=== PATIENT | male | born 1965 | race Caucasian/White ===

== ENCOUNTER 2020-10-30 12:39 | Inpatient (IN) ==
[2020-10-30] MEDS ORDERED: ALBUTEROL 2.5 MG/3 ML NEB RESP TX PRN (15:08)
[2020-10-30] MEDS ORDERED: DEXTROSE 50% 25 GM/50 ML VIAL IV PRN (15:13)
[2020-10-30] MEDS ORDERED: ONDANSETRON 4 MG/2 ML VIAL IV PRN (15:13)
[2020-10-30] MEDS ORDERED: GLUCAGON 1 MG VIAL IM PRN (15:13)
[2020-10-30 15:52] LABS: Basophils % 0.1 % (0.0-0.8); Eosinophils % 0.1 % (0.00-10.9); Hematocrit 27.9 VOL% (42.0-52.0); Hemoglobin 9.4 GM/DL (14.0-18.0); Immature Granulocytes % 5.9 %; Immature Granulocytes Absolute 0.92 #; Lymphocytes # 0.6 10*3/uL (1.4-4.0); Lymphocytes % 4.1 % (21.2-54.2); Mean Corpuscular HGB Conc 33.7 GM/DL (32-36); Mean Corpuscular Volume 96.2 FL (87-102); Mean Platelet Volume 9.2 FL (9.6-12.0); Neutrophils % 80.8 % (38.7-73.9); Platelet Count 254 T/CUMM (130-400); Red Cell Distribution Width 12.1 % (9.3-17.3); White Blood Count 15.5 T/CUMM (4-12)
[2020-10-30] MEDS ORDERED: LEVOFLOXACIN INJ 750 MG in PREMIX 1 EACH IV SCH (16:00)
[2020-10-30 16:13] LABS: Albumin 2.1 G/DL (3.4-5.0); Bilirubin,Total 0.4 MG/DL (0.2-1.0); Calcium 8.4 MG/DL (8.5-10.1); Osmolality,Calculated 261.5 MOS/KG (273-304); Potassium 3.6 MMOL/L (3.5-5.1); Total Protein 6.8 G/DL (5.0-7.5)
[2020-10-30 16:42] LABS: Anisocytosis Slight; Band Neutrophils 6 % (0-10); Hypochromasia 1+; Lymphocytes 1 % (20-55); Platelet Estimate Adequate; Segmented Neutrophils 85 % (50-85); Total Cells Counted 100
[2020-10-30] MEDS: GABAPENTIN 300 MG CAPSULE PO SCH ×2 (16:52→21:25)
[2020-10-30] MEDS: ACETAMINOPHEN 325 MG TABLET PO PRN ×2 (16:52→21:26)
[2020-10-30] MEDS: ENOXAPARIN 40 MG/0.4 ML SYRINGE SUBCUT SCH (17:42)
[2020-10-30] MEDS: PIPERACILLIN/TAZOBACTAM 3,375 MG in SODIUM CHLORIDE 0.9% 100 ML IV SCH (19:07)
[2020-10-30] MEDS: guaiFENesin/DM ER 600-30 MG TABLET PO SCH (21:25)
[2020-10-31] MEDS: VANCOMYCIN INJ 1,000 MG in SODIUM CHLORIDE 0.9% 250 ML IV SCH ×2 (00:51→17:54)
[2020-10-31] MEDS: PIPERACILLIN/TAZOBACTAM 3,375 MG in SODIUM CHLORIDE 0.9% 100 ML IV SCH ×3 (04:38→20:45)
[2020-10-31 05:49] LABS: Basophils % 0.2 % (0.0-0.8); Eosinophils % 0.3 % (0.00-10.9); Hematocrit 29.4 VOL% (42.0-52.0); Hemoglobin 9.6 GM/DL (14.0-18.0); Immature Granulocytes Absolute 0.13 #; Lymphocytes # 0.6 10*3/uL (1.4-4.0); Lymphocytes % 4.8 % (21.2-54.2); Mean Corpuscular HGB Conc 32.7 GM/DL (32-36); Mean Platelet Volume 9.9 FL (9.6-12.0); Neutrophils % 84.7 % (38.7-73.9); Platelet Count 252 T/CUMM (130-400); Red Cell Distribution Width 12.1 % (9.3-17.3); White Blood Count 13.1 T/CUMM (4-12)
[2020-10-31] MEDS: ACETAMINOPHEN 325 MG TABLET PO PRN ×3 (05:59→16:47)
[2020-10-31 06:02] LABS: Albumin 2.1 G/DL (3.4-5.0); Bilirubin,Total 0.8 MG/DL (0.2-1.0); Calcium 8.8 MG/DL (8.5-10.1); Osmolality,Calculated 269.8 MOS/KG (273-304); Potassium 3.4 MMOL/L (3.5-5.1); Total Protein 6.6 G/DL (5.0-7.5)
[2020-10-31 06:23] LABS: Band Neutrophils 6 % (0-10); Hypochromasia 1+; Lymphocytes 3 % (20-55); Microcytosis 1+; Platelet Estimate Normal; Segmented Neutrophils 82 % (50-85); Total Cells Counted 100
[2020-10-31] MEDS: guaiFENesin/DM ER 600-30 MG TABLET PO SCH ×2 (09:07→20:45)
[2020-10-31] MEDS: GABAPENTIN 300 MG CAPSULE PO SCH ×4 (09:07→20:45)
[2020-10-31] MEDS: PANTOPRAZOLE 40 MG TABLET PO SCH (09:07)
[2020-10-31 10:35] LABS: INR 1.1; Partial Thromboplastin Time 32.5 SECS (23.9-33.8)
[2020-10-31] MEDS ORDERED: DIAZEPAM 5 MG TABLET PO ONE (12:17)
[2020-10-31] MEDS ORDERED: fentaNYL 100 MCG/2 ML VIAL IV ONE (12:19)
[2020-10-31] MEDS ORDERED: MIDAZOLAM 2 MG/2 ML VIAL IV ONE (12:19)
[2020-10-31] MEDS: SODIUM CHLORIDE 0.45% 1,000 ML IV SCH (12:42)
[2020-10-31] MEDS ORDERED: BUTALBITAL/ACETAMIN/CAFFEINE 50-325-40 MG TABLET PO PRN (15:06)
[2020-10-31 15:17] LABS: Lymphocytes,Pleural Fluid 2 %; Neutrophils,Pleural Fluid 98 %; RBC,Pleural Fluid > 100000 T/CUMM
[2020-10-31] MEDS: ENOXAPARIN 40 MG/0.4 ML SYRINGE SUBCUT SCH (16:46)
[2020-11-01] MEDS: VANCOMYCIN INJ 1,000 MG in SODIUM CHLORIDE 0.9% 250 ML IV SCH ×2 (03:08→16:53)
[2020-11-01] MEDS: PIPERACILLIN/TAZOBACTAM 3,375 MG in SODIUM CHLORIDE 0.9% 100 ML IV SCH ×3 (04:22→20:15)
[2020-11-01 05:27] LABS: Calcium 8.3 MG/DL (8.5-10.1); Osmolality,Calculated 272.7 MOS/KG (273-304); Potassium 3.3 MMOL/L (3.5-5.1)
[2020-11-01 07:49] LABS: Basophils % 0.2 % (0.0-0.8); Eosinophils # 0.1 10*3/uL (0.0-0.87); Eosinophils % 1.4 % (0.00-10.9); Hematocrit 41.2 VOL% (42.0-52.0); Hemoglobin 13.3 GM/DL (14.0-18.0); Immature Granulocytes % 0.4 %; Immature Granulocytes Absolute 0.02 #; Lymphocytes # 0.6 10*3/uL (1.4-4.0); Lymphocytes % 11.8 % (21.2-54.2); Mean Corpuscular HGB Conc 32.3 GM/DL (32-36); Mean Corpuscular Volume 96.9 FL (87-102); Mean Platelet Volume 9.4 FL (9.6-12.0); Monocytes % 8.4 % (1.7-12.7); Neutrophils % 77.8 % (38.7-73.9); Platelet Count 189 T/CUMM (130-400); Red Blood Count 4.25 MC/CUMM (3.8-5.5); Red Cell Distribution Width 12.2 % (9.3-17.3)
[2020-11-01] MEDS ORDERED: POTASSIUM CHLORIDE RIDER 10 MEQ in PREMIX 1 EACH IV PRN (07:50)
[2020-11-01] MEDS ORDERED: POTASSIUM CHLORIDE RIDER 20 MEQ in PREMIX 1 EACH IV PRN (07:50)
[2020-11-01] MEDS ORDERED: POTASSIUM CHLORIDE 20 MEQ TABLET PO PRN (07:50)
[2020-11-01] MEDS: PANTOPRAZOLE 40 MG TABLET PO SCH (09:18)
[2020-11-01] MEDS: GABAPENTIN 300 MG CAPSULE PO SCH ×4 (09:18→20:14)
[2020-11-01] MEDS: guaiFENesin/DM ER 600-30 MG TABLET PO SCH ×2 (09:18→20:14)
[2020-11-01] MEDS: POTASSIUM CHLORIDE 20 MEQ TABLET PO PRN ×3 (09:19→13:50)
[2020-11-01] MEDS ORDERED: SODIUM CHLORIDE 0.9% 500 ML IV ONE (10:08)
[2020-11-01] MEDS: SODIUM CHLORIDE 0.45% 1,000 ML IV SCH (14:12)
[2020-11-01 14:22] LABS: Total Protein,Pleural Fluid 5.2 G/DL
[2020-11-01] MEDS: ENOXAPARIN 40 MG/0.4 ML SYRINGE SUBCUT SCH (15:54)
[2020-11-02] MEDS: VANCOMYCIN INJ 1,000 MG in SODIUM CHLORIDE 0.9% 250 ML IV SCH (03:28)
[2020-11-02 03:50] LABS: Basophils % 0.3 % (0.0-0.8); Eosinophils # 0.1 10*3/uL (0.0-0.87); Eosinophils % 3.6 % (0.00-10.9); Hematocrit 37.7 VOL% (42.0-52.0); Immature Granulocytes % 0.9 %; Immature Granulocytes Absolute 0.03 #; Lymphocytes # 0.8 10*3/uL (1.4-4.0); Lymphocytes % 24.1 % (21.2-54.2); Mean Corpuscular HGB Conc 31.8 GM/DL (32-36); Mean Platelet Volume 8.7 FL (9.6-12.0); Neutrophils % 62.1 % (38.7-73.9); Platelet Count 210 T/CUMM (130-400); Red Blood Count 3.81 MC/CUMM (3.8-5.5); Red Cell Distribution Width 12.4 % (9.3-17.3); White Blood Count 3.3 T/CUMM (4-12)
[2020-11-02 04:12] LABS: Platelet Estimate Adequate
[2020-11-02 04:13] LABS: Hypochromasia Slight; Microcytosis Slight
[2020-11-02 04:16] LABS: Calcium 8.3 MG/DL (8.5-10.1); Osmolality,Calculated 275.4 MOS/KG (273-304)
[2020-11-02] MEDS: PIPERACILLIN/TAZOBACTAM 3,375 MG in SODIUM CHLORIDE 0.9% 100 ML IV SCH ×3 (04:45→20:10)
[2020-11-02] MEDS: guaiFENesin/DM ER 600-30 MG TABLET PO SCH ×2 (08:47→20:09)
[2020-11-02] MEDS: GABAPENTIN 300 MG CAPSULE PO SCH ×4 (08:47→20:09)
[2020-11-02] MEDS: PANTOPRAZOLE 40 MG TABLET PO SCH (08:47)
[2020-11-02] MEDS: SODIUM CHLORIDE 0.45% 1,000 ML IV SCH (13:06)
[2020-11-02] MEDS: ENOXAPARIN 40 MG/0.4 ML SYRINGE SUBCUT SCH (16:53)
[2020-11-03] MEDS: PIPERACILLIN/TAZOBACTAM 3,375 MG in SODIUM CHLORIDE 0.9% 100 ML IV SCH (03:41)
[2020-11-03 03:53] LABS: Basophils % 0.5 % (0.0-0.8); Eosinophils # 0.2 10*3/uL (0.0-0.87); Eosinophils % 4.1 % (0.00-10.9); Hemoglobin 10.8 GM/DL (14.0-18.0); Immature Granulocytes % 1.2 %; Immature Granulocytes Absolute 0.05 #; Lymphocytes # 1.1 10*3/uL (1.4-4.0); Lymphocytes % 27.7 % (21.2-54.2); Mean Corpuscular HGB Conc 31.8 GM/DL (32-36); Mean Corpuscular Volume 97.1 FL (87-102); Mean Platelet Volume 8.5 FL (9.6-12.0); Monocytes % 13.1 % (1.7-12.7); Neutrophils % 53.4 % (38.7-73.9); Platelet Count 263 T/CUMM (130-400); Red Cell Distribution Width 12.3 % (9.3-17.3); White Blood Count 4.1 T/CUMM (4-12)
[2020-11-03 04:29] LABS: Eosinophils 6 % (0-10); Hypochromasia 1+; Lymphocytes 33 % (20-55); Metamyelocytes 1 %; Myelocytes 1 %; Segmented Neutrophils 45 % (50-85); Total Cells Counted 100
[2020-11-03 04:30] LABS: Microcytosis Slight; Platelet Estimate Normal
[2020-11-03 04:35] LABS: Osmolality,Calculated 271.7 MOS/KG (273-304); Potassium 3.8 MMOL/L (3.5-5.1)
[2020-11-03] MEDS: PANTOPRAZOLE 40 MG TABLET PO SCH (09:07)
[2020-11-03] MEDS: GABAPENTIN 300 MG CAPSULE PO SCH (09:07)
[2020-11-03] MEDS: guaiFENesin/DM ER 600-30 MG TABLET PO SCH (09:07)
[2020-11-03 11:15] LABS: CEA, Pleural Fluid 355 ng/mL
[2020-11-03] MEDS ORDERED: HEPARIN LOCK FLUSH 500 UNIT/5 ML SYRINGE IV ONE (11:27)
[2020-11-03 11:56] VITALS: BP 107/67
[2020-11-06 10:51] LABS: Adenosine Deaminase Pleural Fl 540 U/L (0-30)
== END 2020-11-03 12:17 | disposition home or self-care (01) | DRG 178 ==
LOC: N.4E 13:46 → SUATTDRO 13:46
PROVIDERS: ADMIT Internal Medicine; ATTEND Internal Medicine